=== PATIENT | female | born 1940 | race Caucasian/White ===

== ENCOUNTER 2017-06-14 10:28 | Emergency (ER) | payer OTHER ==
[~2017-06-14] VITALS: Ht 160 cm; Wt 55.3 kg
[~2017-06-14 10:28] MED LIST: ALDACTONE25 MG; B COMPLEX1 TAB PO; COUMADIN5 MG PO; COUMADIN6 MG PO; COZAAR25 MG; Cozaar PO; Diflucan PO; ECONOPRED PLUS10 ML OP; FOLIC ACID1 MG PO; FOSAMAX5 MG PO; LEVSIN0.125 MG PO; NORVASC 10 MG TAB PO; NORVASC5 MG PO; PREDNISONE10 MG; PREDNISONE10 MG PO; SYNTHROID; Synthroid PO; VALSARTAN-HCTZ1 EAC4; VASOTEC20 MG PO; ZANTAC300 MG PO; ZOFRAN4 MG PO; [UNRECOGNIZED DRUG - OTHER]
== END 2017-06-14 13:40 | disposition home or self-care (01) ==
LOC: ER 10:28
DX: K29.70 Gastritis, unspecified, without bleeding (principal)

== ENCOUNTER 2017-06-22 11:20 | Outpatient (CLI) | payer OTHER | END 2017-06-22 15:34 | disposition home or self-care (01) | LOC: MRI 11:20 | DX: I63.50 Cerebral infarction due to unspecified occlusion or stenosis of unspecified cerebral artery (principal); C71.6 Malignant neoplasm of cerebellum | CPT/HCPCS: 70551 ==

== ENCOUNTER 2017-07-29 12:28 | Emergency (ER) | payer OTHER ==
[~2017-07-29] VITALS: Ht 162.6 cm; Wt 54.4 kg
[2017-07-29] MEDS ORDERED: NORVASC10 MG (12:57)
== END 2017-07-29 17:20 | disposition home or self-care (01) ==
LOC: ER 12:28
DX: R07.89 Other chest pain (principal)

== ENCOUNTER 2017-08-14 10:49 | Emergency (ER) | payer OTHER ==
[~2017-08-14] VITALS: Ht 157.5 cm; Wt 63.5 kg
[~2017-08-14 10:49] MED LIST changes: +NORVASC10 MG
[2017-08-14] MEDS ORDERED: MICROZIDE12.5 MG PO (11:38)
[2017-08-18] MEDS ORDERED: VITAMIN C500 M1 (16:36)
== END 2017-08-14 17:00 | disposition home or self-care (01) ==
LOC: ER 10:49
DX: M54.5 Low back pain (principal)

== ENCOUNTER → 2017-08-18 | Emergency (ER) | payer OTHER ==
[~2017-08-18] VITALS: Ht 152.4 cm; Wt 54.4 kg
[~2017-08-18] MED LIST changes: +MICROZIDE12.5 MG PO; +VITAMIN C500 M1
== END | disposition home or self-care (01) ==
LOC: ER 15:39
DX: E03.8 Other specified hypothyroidism (principal); K59.09 Other constipation

== ENCOUNTER 2017-10-29 13:26 | Emergency (ER) | payer OTHER ==
[~2017-10-29] VITALS: Ht 162.6 cm; Wt 54.4 kg
[~2017-10-29 13:26] MED LIST changes: +CEFDINIR300 MG PO; +COUMADIN4 MG PO; +Intestinex CAP PO; +LEVOTHYROXINE25 MCG PO; +LIDODERM1 EACH TOP; +LOSARTAN POTASS50 MG PO; +NORVASC5 MG; +PANTOPRAZOLE SO40 MG PO; +SUCRALFATE1 GM/10 ML PO; +TRAM1TAB98 PO; +ZANTAC150 MG PO; +ZOLPIDEM TARTRAT5 MG PO
== END 2017-10-29 23:44 | disposition home or self-care (01) ==
LOC: ER 13:26
DX: K59.09 Other constipation (principal); K86.2 Cyst of pancreas; N20.0 Calculus of kidney

== ENCOUNTER 2017-11-09 11:08 | Outpatient (CLI) | payer OTHER | END 2017-11-09 11:18 | disposition home or self-care (01) | LOC: MRI 11:08 | DX: M51.17 Intervertebral disc disorders with radiculopathy, lumbosacral region (principal) | CPT/HCPCS: 72148 ==

== ENCOUNTER 2017-11-16 14:30 | Outpatient (CLI) | payer OTHER | END 2017-11-16 14:44 | disposition home or self-care (01) | LOC: NUCLEAR 14:30 | DX: M81.0 Age-related osteoporosis without current pathological fracture (principal) ==

== ENCOUNTER 2017-12-30 10:46 | Outpatient (CLI) | payer OTHER | END 2017-12-30 10:56 | disposition home or self-care (01) | LOC: RAD 10:46 | DX: S32.010A Wedge compression fracture of first lumbar vertebra, initial encounter for closed fracture (principal); S32.020A Wedge compression fracture of second lumbar vertebra, initial encounter for closed fracture; S32.030A Wedge compression fracture of third lumbar vertebra, initial encounter for closed fracture; S22.080A Wedge compression fracture of T11-T12 vertebra, initial encounter for closed fracture ==

== ENCOUNTER → 2018-02-14 | Outpatient (CLI) | payer OTHER | END | disposition home or self-care (01) | LOC: RAD 11:59 | DX: M54.6 Pain in thoracic spine (principal) ==

== ENCOUNTER 2018-05-22 11:43 | Emergency (ER) | payer OTHER ==
[~2018-05-22] VITALS: Ht 160 cm; Wt 61.2 kg
== END 2018-05-22 20:01 | disposition home or self-care (01) ==
LOC: ER 11:43
DX: E86.0 Dehydration (principal); M54.89 Other dorsalgia; R10.13 Epigastric pain; R11.0 Nausea

== ENCOUNTER 2018-06-20 18:42 | Emergency (ER) | payer OTHER ==
[~2018-06-20] VITALS: Ht 160 cm; Wt 47.6 kg
[2018-06-20] MEDS ORDERED: ALDACTONE25 MG (18:54)
[2018-06-20] MEDS ORDERED: PREDNISONE10 MG (18:55)
[2018-06-20] MEDS ORDERED: HYDROCHLOROTH12.5 MG (18:56)
== END 2018-06-21 02:45 | disposition home or self-care (01) ==
LOC: ER 18:42 → CPU-OBS 19:21 → ER 19:21
DX: R07.89 Other chest pain (principal); I10 Essential (primary) hypertension

== ENCOUNTER 2018-06-27 09:02 | Outpatient (CLI) | payer OTHER ==
[~2018-06-27 09:02] MED LIST changes: +HYDROCHLOROTH12.5 MG
== END 2018-06-27 09:09 | disposition home or self-care (01) ==
LOC: SONOGRAMA 09:02
DX: R10.13 Epigastric pain (principal)

== ENCOUNTER 2018-12-27 15:26 | Emergency (ER) | payer OTHER ==
[~2018-12-27] VITALS: Ht 160 cm; Wt 47.6 kg
[2018-12-27] MEDS ORDERED: COUMADIN1 MG (16:04)
[2018-12-27] MEDS ORDERED: LEVOTHYROXINE25 MCG (16:04)
[2018-12-27] MEDS ORDERED: ZANTAC150 MG (16:04)
== END 2018-12-28 09:53 | disposition home or self-care (01) ==
LOC: ER 15:26
DX: R42 Dizziness and giddiness (principal); E87.1 Hypo-osmolality and hyponatremia; E86.0 Dehydration

== ENCOUNTER 2019-04-03 10:58 | Inpatient (IN) | payer OTHER ==
[~2019-04-03] VITALS: Ht 162.6 cm; Wt 46.7 kg
[~2019-04-03 10:58] MED LIST changes: +COUMADIN1 MG; +LEVOTHYROXINE25 MCG; +ZANTAC150 MG
--- NOTE | 2019-04-03 11:32 | NUR ---
SE RECIBE PACIENTE ALERTA Y ORIENTADA POR TRACEY ESFERAS QUIEN REFIERE DOLOR DE PECHO, DOLOR EPIGASTRICO Y NAUSEAS DESDE HOY EN LA MANANA.
--- NOTE | 2019-04-03 12:00 | NUR ---
SE ORIENTA A PACIENTE SOBRE PROCEDIMIENTO Y TX, REFIERE ENTENDER SE EXTRAE MUESTRAS DE LABORATORIO CON MEDIDAAS ASEPTICAS Y SE ADMINISTRA MEDICAMENTOS JO ANN ORDEN MEDICA. SE INICIA CANALIZACION EN BRAZO RT ANGIO #18. PACIENTE CON VENOPUNCION EN BRAZO LT POR PARAMEDICOS. SE REALIZA EKG, EL CUAL SE PRESENTA A DR. TRINIDAD, PACIENTE CONECTADA A MONITOR CARDIACO.
--- NOTE | 2019-04-03 14:35 | NUR ---
SE REALIZA SOCO DE 2DAS TROPONINAS. PENDIENTE RESULTADOS DE LABORATORIO PARA RE-EVALUACION MEDICA.
--- NOTE | 2019-04-03 14:59 | NUR ---
SE RECIBE PTE FEMENINA ALERTTA Y ORIENTADA X3,[place] DE FAMILIAR,CONECTADA A MONITOR CARDIACO ROLANDO EN LUISITO #18 CPU ER,SE MANTIENE CON H/L PATENTE LIBVRE DE EDEMA Y ENROJECIMIENTO,SE NOTIFICA A PTE REFIERE ARDOR EN ESTOMAGO,REFIERE NO DOLOR,SE MANTIENE A PTE EN OBSERVACION POR CAMBIOS.
--- NOTE | 2019-04-03 16:06 | NUR ---
SE NOTIFICA A AUMENTO EN TROPONINA,MICHELET SE COMUNICA CON ,PTE DE CARDIOLOGO
[2019-04-06] MEDS ORDERED: CARVEDILOL6.25 MG PO (13:50)
[2019-04-06] MEDS ORDERED: LEVOTHYROXINE50 MCG PO (13:50)
[2019-04-06] MEDS ORDERED: Plaquenil PO (13:50)
[2019-04-06] MEDS ORDERED: PEPCID AC20 MG PO (13:50)
[2019-04-06] MEDS ORDERED: COUMADIN4 MG PO (13:50)
[2019-04-06] MEDS ORDERED: CARAFATE1 GM/10 ML PO (13:50)
[2019-04-06] MEDS ORDERED: SPIRONOLACTONE25 MG PO (13:50)
[2019-04-06] MEDS ORDERED: PREDNISONE10 MG PO (13:50)
[2019-04-06] MEDS ORDERED: PANTOPRAZOLE SO40 MG PO (13:50)
== END 2019-04-07 10:14 | disposition home or self-care (01) | DRG 292 ==
LOC: ER 10:58 → MEDJ 19:53 → SEC-K 19:53 → MEDJ 04-04 00:34
PROVIDERS: ADMIT Internal Medicine Geriatric Medicine
PROC: 4A12X4Z Monitoring of Cardiac Electrical Activity, External Approach (ICD-10-PCS; 2019-04-03)
PROC: C21G1ZZ Planar Nuclear Medicine Imaging of Myocardium using Technetium 99m (Tc-99m) (ICD-10-PCS; principal; 2019-04-04)
PROC: B246ZZZ Ultrasonography of Right and Left Heart (ICD-10-PCS; 2019-04-04)
DX: I11.0 Hypertensive heart disease with heart failure (principal); I69.354 Hemiplegia and hemiparesis following cerebral infarction affecting left non-dominant side; E27.49 Other adrenocortical insufficiency; I50.43 Acute on chronic combined systolic (congestive) and diastolic (congestive) heart failure; I35.0 Nonrheumatic aortic (valve) stenosis; M32.8 Other forms of systemic lupus erythematosus; E03.8 Other specified hypothyroidism; K29.00 Acute gastritis without bleeding

== ENCOUNTER → 2019-04-11 | Emergency (ER) | payer OTHER ==
[~2019-04-11] VITALS: Ht 162.6 cm; Wt 58.1 kg
[~2019-04-11] MED LIST changes: +CARAFATE1 GM/10 ML PO; +CARVEDILOL6.25 MG PO; +LEVOTHYROXINE50 MCG PO; +PEPCID AC20 MG PO; +Plaquenil PO; +SPIRONOLACTONE25 MG PO
== END | disposition designated cancer center or children's hospital (05) ==
LOC: ER 15:36
DX: I21.4 Non-ST elevation (NSTEMI) myocardial infarction (principal); I25.10 Atherosclerotic heart disease of native coronary artery without angina pectoris; I10 Essential (primary) hypertension; R07.89 Other chest pain

== ENCOUNTER 2020-10-27 12:58 | Outpatient (CLI) | payer OTHER | END 2020-10-27 13:00 | disposition home or self-care (01) | LOC: NUCLEAR 12:58 | PROVIDERS: ATTEND Internal Medicine Rheumatology | DX: M81.0 Age-related osteoporosis without current pathological fracture (principal) ==

== ENCOUNTER 2020-11-20 08:29 | Emergency (ER) | payer OTHER ==
[~2020-11-20] VITALS: Ht 160 cm; Wt 49.0 kg
== END 2020-11-20 14:22 | disposition home or self-care (01) ==
LOC: ER 08:29
DX: D64.89 Other specified anemias (principal); D63.8 Anemia in other chronic diseases classified elsewhere; R42 Dizziness and giddiness

== ENCOUNTER 2020-11-26 09:21 | Outpatient (CLI) | payer OTHER | END 2020-11-26 09:59 | disposition home or self-care (01) | LOC: TOM 09:21 | PROVIDERS: ATTEND Internal Medicine Hematology & Oncology | DX: R63.4 Abnormal weight loss (principal); D50.0 Iron deficiency anemia secondary to blood loss (chronic); C80.1 Malignant (primary) neoplasm, unspecified ==

== ENCOUNTER 2020-12-24 08:55 | Outpatient (CLI) | payer OTHER | END 2020-12-24 08:56 | disposition home or self-care (01) | LOC: NUCLEAR 08:55 | PROVIDERS: ATTEND Internal Medicine Hematology & Oncology | DX: D50.8 Other iron deficiency anemias (principal); R63.4 Abnormal weight loss; R97.8 Other abnormal tumor markers | CPT/HCPCS: 78816; A9552 ==

== ENCOUNTER 2021-01-14 14:35 | Outpatient (CLI) | payer OTHER | END 2021-01-14 14:39 | disposition home or self-care (01) | LOC: RAD 14:35 | PROVIDERS: ATTEND Orthopaedic Surgery Orthopaedic Surgery of the Spine | DX: M54.5 Low back pain (principal) ==

== ENCOUNTER 2021-02-03 11:47 | Outpatient (CLI) | payer OTHER | END 2021-02-03 14:21 | disposition home or self-care (01) | LOC: RAD 11:47 | PROVIDERS: ATTEND Orthopaedic Surgery Orthopaedic Surgery of the Spine | DX: M79.672 Pain in left foot (principal) ==

== ENCOUNTER → 2021-03-20 | Outpatient (CLI) | payer OTHER | END | disposition home or self-care (01) | LOC: RAD 10:12 | PROVIDERS: ATTEND Physical Medicine & Rehabilitation | DX: M25.552 Pain in left hip (principal); M25.551 Pain in right hip ==

== ENCOUNTER 2021-03-25 09:06 | Outpatient (CLI) | payer OTHER | END 2021-03-25 09:11 | disposition home or self-care (01) | LOC: NUCLEAR 09:06 | PROVIDERS: ATTEND Orthopaedic Surgery | DX: I87.2 Venous insufficiency (chronic) (peripheral) (principal) ==